=== PATIENT | female | born 1950 | race Caucasian/White ===

== ENCOUNTER 2016-12-12 01:53 | Emergency (ER) | payer MEDICARE, BC ==
[~2016-12-12] VITALS: Ht 165.1 cm; Wt 70.0 kg
[~2016-12-12 01:53] MED LIST: ALPR0.5T99 PO; ATEN1TAB74 PO; BACL10TA PO; BAYE325T3 PO; CYCL-36 PO; FEMA2.5T PO; FOSA70TA PO; NEUR300C PO; OMEG875C PO; OXYC1TAB13 PO; PROM25TA5 PO; SIMV40TA PO; TAB-TAB PO; ZOLP10TA3 PO
[2016-12-12 01:56] VITALS: BP 107/61; PULSE 60; RESP 18; TEMP 97.6; O2SAT 95
[2016-12-12] MEDS ORDERED: ZOLP10TA3 PO (02:11)
[2016-12-12] MEDS ORDERED: ATOR40TA16 PO (02:11)
[2016-12-12] MEDS ORDERED: ATEN50TA PO (02:11)
[2016-12-12] MEDS ORDERED: NEUR300C PO (02:11)
[2016-12-12] MEDS ORDERED: OXYC-392 PO (02:11)
[2016-12-12] MEDS ORDERED: ZOFR4TAB PO (02:11)
[2016-12-12] MEDS ORDERED: ALEN1TAB48 PO (02:11)
[2016-12-12] MEDS ORDERED: BACL20TA PO (02:11)
[2016-12-12] MEDS ORDERED: LETR2.5T (02:11)
[2016-12-12] MEDS ORDERED: NEUR600T PO (02:11)
[2016-12-12] MEDS ORDERED: ALPR0.5T3 PO (02:11)
[2016-12-12] MEDS ORDERED: MULT-159 (02:11)
[2016-12-12] MEDS ORDERED: LIDOCAINE HCL 1% 50 ML VIAL INFIL ONE (03:15)
--- NOTE | 2016-12-12 03:24 | RADRPT ---
EXAM DATE/TIME: 12/12/2016 02:27 [facility] COMPARISON: No previous studies available for comparison. INDICATIONS : Trauma. Patient hit head on doorknob. Laceration to forehead. RADIATION DOSE: 35.43 CTDIvol (mGy) MEDICAL HISTORY : Hypertension. SURGICAL HISTORY : None. ENCOUNTER: Initial ACUITY: 1 day PAIN SCALE: 6/10 LOCATION: cranial TECHNIQUE: Multiple contiguous axial images were obtained of the head. Using automated exposure control and adj ustment of the mA and/or kV according to patient size, radiation dose was kept as low as reasonably a chievable to obtain optimal diagnostic quality images. DICOM format image data is available electro nically for review and comparison. FINDINGS: CEREBRUM: The ventricles are normal for age. No evidence of midline shift, mass lesion, hemorrhage or acute in farction. No extra-axial fluid collections are seen. POSTERIOR FOSSA: The cerebellum and brainstem are intact. The 4th ventricle is midline. The cerebellopontine angle i s unremarkable. EXTRACRANIAL: The visualized portion of the orbits is intact. SKULL: The calvaria is intact. No evidence of skull fracture. CONCLUSION: No acute disease. Enmanuel Bennett MD on December 12, 2016 at 3:21 Board Certified Radiologist. This report was verified electronically.
--- NOTE | 2016-12-12 03:25 | RADRPT ---
EXAM DATE/TIME: 12/12/2016 02:27 [facility] COMPARISON: No previous studies available for comparison. INDICATIONS : Trauma. Patient hit head on doorknob RADIATION DOSE: 21.40 CTDIvol (mGy) MEDICAL HISTORY : None SURGICAL HISTORY : None. ENCOUNTER: Initial ACUITY: 1 day PAIN SCALE: 2/10 LOCATION: neck TECHNIQUE: Volumetric scanning of the cervical spine was performed. Multiplanar reconstructions in the sagittal, coronal and oblique axial planes were performed. Using automated exposure control and adjustment o f the mA and/or kV according to patient size, radiation dose was kept as low as reasonably achievable to obtain optimal diagnostic quality images. DICOM format image data is available electronically f or review and comparison. FINDINGS: VERTEBRAE: Normal vertebral body height. ALIGNMENT: No evidence of subluxation. C2-C3: The bony spinal canal is normal in size. No evidence of disc bulge or herniation. The neural forami na are bilaterally patent. C3-C4: The bony spinal canal is normal in size. No evidence of disc bulge or herniation. The neural forami na are bilaterally patent. C4-C5: The bony spinal canal is normal in size. No evidence of disc bulge or herniation. The neural forami na are bilaterally patent. C5-C6: The bony spinal canal is normal in size. No evidence of disc bulge or herniation. The neural forami na are bilaterally patent. C6-C7: The bony spinal canal is normal in size. No evidence of disc bulge or herniation. The neural forami na are bilaterally patent. C7-T1: The bony spinal canal is normal in size. No evidence of disc bulge or herniation. The neural forami na are bilaterally patent. CONCLUSION: No fracture or subluxation. Enmanuel Bennett MD on December 12, 2016 at 3:22 Board Certified Radiologist. This report was verified electronically.
--- NOTE | 2016-12-12 03:29 | PD ---
Physical Exam Narrative I was asked by Dr. Aragon to repair patient's forehead laceration. Please see his documentation for full H&P. Data Data Last Documented VS Vital Signs Date Time Temp Pulse Resp B/P Pulse Ox O2 Delivery O2 Flow Rate FiO2 12/12/16 01:56 97.6 60 18 107/[address] Brain W/O Iv Contrast(Rout) (12/12/16 ) Ct Cerv Spine W/O Contrast (12/12/16 ) Electrocardiogram (12/12/16 ) Lidocaine 1% Inj (50 Ml) (Xylocaine 1% I (12/12/16 03:15) MDM Supervised Visit with JUSTIN: No Narrative Course The patient suffered laceration to the face. The laceration appeared clean and approximated well. There was no evidence to suggest foreign bodies. Visual and tactile exams were unremarkable. There was no evidence of neurovascular injury as well. The patient was irrigated with copious sterile normal saline and primary repair was performed using Steri-Strips and Dermabond. Please see procedure note. The patient was given signs and symptom warnings for infection, such as increasing pain, redness, swelling, associated heat, pus or fever. The patient was given instructions for timely follow up. The patient agreed with plan of care. Procedures Procedure Narrative LACERATION REPAIR LOCATION: Left forehead LENGTH: Approximate 5 cm NUMBER OF STITCHES/JULI: Steri-Strips and Dermabond REPAIR: Verbal consent was obtained. The area of the laceration was cleaned and prepped. The wound was copiously irrigated and explored without evidence of foreign body, bony involvement, ligament injury, tendon injury, or neurovascular injury. The wound was closed using their strips and Dermabond. This was a single layer repair. A sterile dressing was applied by nurse. The patient was advised to keep the affected area as clean and dry as possible using soap and water. There were no complications. Patient tolerated the procedure well. Kemal Cobian Dec 12, 2016 03:28
--- NOTE | 2016-12-12 04:10 | PD ---
HPI Chief Complaint: Fall Time Seen by Provider: 01:59 Travel History International Travel<30 days: No Contact w/Intl Traveler<30days: No Traveled to known affect area: No History of Present Illness HPI Patient is a 58-year-old female presents emergency department after a fall with laceration to left forehead. Patient states she took her Ambien and she knows makes her dizzy but wanted to get out of bed tonight anyways. She states that when she first got up she felt dizzy but felt fine and ambulate and as she ambulated further she became more dizzy and lost her balance falling forward and hitting her head on the door jam. Denies any loss of consciousness chest pain or shortness of breath leading up to or following the event. She complains only of a laceration to her head and has no other pain at this time. PFSH Past Medical History Heart Rhythm Problems: Yes (tachycardia, skipped beats) Cancer: No Cardiovascular Problems: Yes (IRRIGULAR HEART BEAT) High Cholesterol: Yes Diabetes: Yes (DIET CONTROLLED) Patient Takes Glucophage: No Diminished Hearing: No Glaucoma: No Hepatitis: No Hiatal Hernia: No Hypertension: Yes Medical other: Yes (ELEVATED LFT .SONY ) Thyroid Disease: No ?: Not Menopausal: Yes Past Surgical History Abdominal Surgery: Yes (UMBILICAL HERNIA REPAIR. GALLBLADDER) Cardiac Surgery: No Ear Surgery: No Endocrine Surgery: No Eye Surgery: No Genitourinary Surgery: No Gynecologic Surgery: No Oral Surgery: No Pacemaker: No Thoracic Surgery: No Other Surgery: Yes Social History Alcohol Use: No Tobacco Use: No Substance Use: No Allergies-Medications (Allergen,Severity, Reaction): Coded Allergies: Elavil (Verified Allergy, Mild, HEART SKIPS, 10/02/13) Reported Meds & Prescriptions Reported Meds & Active Scripts Active Reported Zofran (Ondansetron HCl) 4 Mg Tab 4 Mg PO Q6HR PRN Oxycodone (Oxycodone HCl) 5 Mg Tab 5 Mg PO Q6H PRN Neurontin (Gabapentin) 600 Mg Tab 600 Mg PO HS Neurontin (Gabapentin) 300 Mg Cap 300 Mg PO BID Letrozole 2.5 Mg Tab Zolpidem (Zolpidem Tartrate) 10 Mg Tab 10 Mg PO HS PRN Alprazolam 0.5 Mg Tab 0.5 Mg PO Q6H PRN Alendronate (Alendronate Sodium) 70 Mg Tab 70 Mg PO Q7D Multivitamins (Multivitamin) 1 Each Tab.chew Atenolol 50 Mg Tab 50 Mg PO HS Baclofen 20 Mg Tab 20 Mg PO TID Atorvastatin (Atorvastatin Calcium) 40 Mg Tab 40 Mg PO HS Review of Systems Except as stated in HPI: all other systems reviewed are Neg Physical Exam Narrative GENERAL: Well-developed well-nourished in no obvious distress. SKIN: Focused skin assessment warm/dry. HEAD: No grover signs no raccoons eyes, there is a 2-3 cm laceration running vertically over the left forehead, does not proceed past the basement membrane.. Normocephalic. EYES: Pupils equal and round. No scleral icterus. No injection or drainage. ENT: No nasal bleeding or discharge. Mucous membranes pink and moist. NECK: Trachea midline. No JVD. CARDIOVASCULAR: Regular rate and rhythm. No murmur appreciated. RESPIRATORY: No accessory muscle use. Clear to auscultation. Breath sounds equal bilaterally. GASTROINTESTINAL: Abdomen soft, non-tender, nondistended. Hepatic and splenic margins not palpable. MUSCULOSKELETAL: No obvious deformities. No clubbing. No cyanosis. No edema. NEUROLOGICAL: Awake and alert. Cranial nerves II through XII are grossly intact and nonfocal, 5 out of 5 strength in all 4 extremities, cerebellar testing negative, PSYCHIATRIC: Appropriate mood and affect; insight and judgment normal. Data Data Last Documented VS Vital Signs Date Time Temp Pulse Resp B/P Pulse Ox O2 Delivery O2 Flow Rate FiO2 12/12/16 01:56 97.6 60 18 107/[address] Brain W/O Iv Contrast(Rout) (12/12/16 ) Ct Cerv Spine W/O Contrast (12/12/16 ) Electrocardiogram (12/12/16 ) Lidocaine 1% Inj (50 Ml) (Xylocaine 1% I (12/12/16 03:15) MDM Medical Decision Making Medical Screen Exam Complete: Yes Emergency Medical Condition: Yes Interpretation(s) EKG shows sinus bradycardia rate of 57, normal axis normal R-wave progression. No concerning ST segment changes. Intervals otherwise within normal limits. This normal EKG except for rate. Differential Diagnosis Fall, head laceration, closed head injury, syncope unlikely, Narrative Course Patient roomed in the emergency department, appears well and in no obvious distress. Laceration was repaired, CT head and C-spine negative: Last [address] 12/12/16 0000 Signed Impressions: Service Date/Time: , December 12, 2016 02:27 - CONCLUSION: No acute disease. Enmanuel Bennett MD Cervical Spine CT 12/12/16 0000 Signed Impressions: Service Date/Time: , December 12, 2016 02:27 - CONCLUSION: No fracture or subluxation. Enmanuel Bennett MD Discussed fall prevention with the patient, highly doubt more sinister cause of her fall tonight. She would like to follow-up with her primary care physician I think this is reasonable. She stable for discharge at this time. Discussed return to ED criteria. Diagnosis Primary Impression: Closed head injury Additional Impression: Laceration of forehead Disposition: 01 DISCHARGE HOME Condition: Stable Juan Aragon MD Dec 12, 2016 04:10
--- NOTE | 2016-12-12 18:10 | EKG ---
Date Performed: 12/12/2016 Time Performed: 02:23:28 PTAGE: 66 years EKG: SINUS BRADYCARDIA BORDERLINE ECG PREVIOUS TRACING 04/06/2007 @ 11.08.32 Compared to prior tracing no significant change DOCTOR: Ledy Avendano Interpretating Date/Time 12/12/2016 18:09:08
== END 2016-12-12 04:36 | disposition home or self-care (01) ==
LOC: NEPE 01:53
DX: S01.81XA Laceration without foreign body of other part of head, initial encounter (principal); I10 Essential (primary) hypertension; E78.00 Pure hypercholesterolemia, unspecified; R00.1 Bradycardia, unspecified; W18.39XA Other fall on same level, initial encounter; Y93.89 Activity, other specified; Y92.003 Bedroom of unspecified non-institutional (private) residence as the place of occurrence of the external cause
CPT/HCPCS: 12013; 70450; 72125; 93005

== ENCOUNTER 2017-11-23 11:34 | Emergency (ER) | payer MEDICARE, BC ==
[~2017-11-23 11:34] MED LIST changes: +ALEN1TAB48 PO; +ALPR0.5T3 PO; -ALPR0.5T99 PO; -ATEN1TAB74 PO; +ATEN50TA PO; +ATOR40TA16 PO; -BACL10TA PO; +BACL20TA PO; -BAYE325T3 PO; -CYCL-36 PO; -FEMA2.5T PO; -FOSA70TA PO; +LETR2.5T; +MULT-159; +NEUR600T PO; -OMEG875C PO; +OXYC-392 PO; -OXYC1TAB13 PO; -PROM25TA5 PO; -SIMV40TA PO; -TAB-TAB PO; +ZOFR4TAB PO
[2017-11-23 11:46] VITALS: BP 137/67; PULSE 64; RESP 20; TEMP 98.3; O2SAT 98
[2017-11-23] MEDS ORDERED: KETOROLAC TROMETHAMINE 60 MG/2 ML (IM) VIAL IM ONE (12:45)
[2017-11-23] MEDS ORDERED: NAPR-855 PO (12:50)
--- NOTE | 2017-11-23 12:50 | PD ---
HPI Chief Complaint: Back/ Neck Pain or Injury Time Seen by Provider: 12:18 Travel History International Travel<30 days: No Contact w/Intl Traveler<30days: No Traveled to known affect area: No History of Present Illness HPI 67-year-old with history of chronic back pain presents emerged from complaining of increasing back pain over the past couple weeks, worse today. She is due to follow-up with Dr. Camp. Said imaging in the past has not revealed any etiology. She took Percocet in the past but it just made her constipated really helps that she has been taking it. No numbness tingling or radiation. No other complaints. History Past Medical History Narrative Medical Chronic back pain, history of fusion in 2001 Influenza Vaccination: Yes Menopausal: Yes Social History Alcohol Use: No Tobacco Use: No Allergies-Medications (Allergen,Severity, Reaction): Coded Allergies: amitriptyline (Unverified Allergy, Mild, HEART SKIPS, 01/21/17) Reported Meds & Prescriptions Reported Meds & Active Scripts Active Reported Zofran (Ondansetron HCl) 4 Mg Tab 4 Mg PO Q6HR PRN Oxycodone (Oxycodone HCl) 5 Mg Tab 5 Mg PO Q6H PRN Neurontin (Gabapentin) 600 Mg Tab 600 Mg PO BID Neurontin (Gabapentin) 300 Mg Cap 300 Mg PO Q AM Letrozole 2.5 Mg Tab Alprazolam 0.5 Mg Tab 0.5 Mg PO Q6H PRN Alendronate (Alendronate Sodium) 70 Mg Tab 70 Mg PO Q7D Atenolol 50 Mg Tab 50 Mg PO HS Baclofen 20 Mg Tab 20 Mg PO TID Atorvastatin (Atorvastatin Calcium) 40 Mg Tab 40 Mg PO HS Review of Systems Except as stated in HPI: all other systems reviewed are Neg Physical Exam Narrative GENERAL: Well-developed, well-nourished, no acute distress. SKIN: Warm and dry. CARDIOVASCULAR: Warm and well perfused. RESPIRATORY: Normal rate and effort. MUSCULOSKELETAL: Normal appearance of back and bilateral lower extremities. No ecchymosis, swelling, bruising. No rashes. Normal muscle bulk and tone. NEUROLOGICAL: Strength full 5/5 and equal in bilateral lower extremities in proximal and distal muscle groups. 5/5 in large toe flexion and extension. Sensation is intact to light touch throughout. PSYCHIATRIC: Appropriate mood and affect; insight and judgment normal. Data Data Last Documented VS Vital Signs Date Time Temp Pulse Resp B/P (MAP) Pulse Ox O2 Delivery O2 Flow Rate FiO2 11/23/17 11:46 98.3 64 20 137/67 (90) 98 Orders Orders Ketorolac Inj (Toradol Inj) (11/23/17 12:45) MDM Medical Decision Making Medical Screen Exam Complete: Yes Emergency Medical Condition: Yes Differential Diagnosis Back pain, strain or sprain, other Narrative Course Medical decision making Is a well 67-year-old presents emerged for worsening back pain. Responded well to Toradol in the past. Will give Toradol, short course of NSAIDs, close outpatient follow-up. Diagnosis Primary Impression: Acute exacerbation of chronic low back pain Patient Instructions: General Instructions Additional Instructions: Take Naprosyn as prescribed. Follow-up with her primary doctor the next 2-4 days. Return the emergency department for any worsening pain, numbness, tingling, weakness, or any other new or worsening symptoms. Med/Other Pt SpecificInfo: No Change to Meds Scripts Naproxen (Naproxen) 375 Mg Tab 375 MG PO BID for 7 Days, #14 TAB 0 Refills Prov: Andrew Murrell MD 11/23/17 Disposition: 01 DISCHARGE HOME Condition: Stable Andrew Murrell MD Nov 23, 2017 12:50
== END 2017-11-23 13:10 | disposition home or self-care (01) ==
LOC: PHEFT 11:34
DX: M54.5 Low back pain (principal); G89.29 Other chronic pain
CPT/HCPCS: 96372; 99283; J1885